=== PATIENT | female | born 1955 | race Caucasian/White ===

== ENCOUNTER 2021-06-19 13:01 | Outpatient (RCR) | payer MEDICARE | END 2021-09-17 | disposition home or self-care (01) | LOC: PT | DX: I69.30 Unspecified sequelae of cerebral infarction (principal) ==

== ENCOUNTER → 2021-07-19 | Outpatient (CLI) | payer MEDICARE | LOC: RAD 12:26 | DX: R13.10 Dysphagia, unspecified (principal) ==

== ENCOUNTER 2023-01-09 08:00 | Outpatient (RCR) | payer MEDICARE, BC | END 2023-01-24 | disposition home or self-care (01) | LOC: PT | DX: R26.81 Unsteadiness on feet (principal); M62.838 Other muscle spasm ==